=== PATIENT | female | born 1990 | race Two or more races ===

== ENCOUNTER 2016-10-05 05:37 | Observation (INO) | payer MEDICAID, OTHER ==
[~2016-10-05] VITALS: Ht 154.9 cm; Wt 75.7 kg
[2016-10-05] MEDS ORDERED: SODIUM CHLORIDE 0.9% 1,000 ML IVB ONE (07:49)
[2016-10-05] MEDS ORDERED: LIDOCAINE VISCOUS 2% 15ML UD PO ONE (08:00)
[2016-10-05] MEDS ORDERED: LOPERAMIDE HCL 2 MG CAP PO ONE (08:00)
[2016-10-05] MEDS ORDERED: ALUM & MAG HYDROX-SIMETH LIQ(MAALOX) 30 ML PO ONE (08:00)
[2016-10-05] MEDS ORDERED: ONDANSETRON HCL 4 MG/2 ML VIAL IV ONE (08:00)
[2016-10-05] MEDS ORDERED: DONNATAL 5ml ORAL Elix (BELLADONNA ALK-PHENOBARB) PO ONE (08:00)
[2016-10-05] MEDS ORDERED: PANTOPRAZOLE SODIUM 40 MG/10 ML VIAL IV ONE (08:00)
[2016-10-05 09:09] LABS: Albumin 3.7 g/dL (3.4-5.0); Bilirubin, Total 1.2 mg/dL (0.2-1.0); Calcium 8.5 mg/dL (8.5-10.1); Potassium 3.8 mmol/L (3.5-5.1); Total Protein 7.8 g/dL (6.4-8.2)
[2016-10-05 09:11] LABS: Basophils # (auto) 0 uL; Basophils % (auto) 0.2 % (0.0-2.0); Eosinophils # (auto) 0 uL; Eosinophils % (auto) 0.3 % (0.0-7.0); Hematocrit 39.8 % (36.0-46.0); Hemoglobin 13.3 g/dL (12.2-16.2); Lymphocytes # (auto) 0.5 uL; Lymphocytes % (auto) 8.4 % (10.0-50.0); Mean Corpuscular Hemoglobin 28.6 pg (28.0-32.0); Mean Corpuscular Hgb Conc. 33.5 g/dL (32.0-36.0); Mean Corpuscular Volume 85.3 fL (80.0-100.0); Mean Platelet Volume 8.9 fL (7.4-10.4); Monocytes # (auto) 0.3 uL; Monocytes % (auto) 4.6 % (0.0-12.0); Neutrophils # (auto) 5.3 uL; Neutrophils % (auto) 86.5 % (37.0-80.0); Platelet Count (auto) 273 10^3/uL (140-450); Red Cell Distribution Width 13.2 % (11.6-16.0); White Blood Cell 6.2 10^3/uL (4.4-10.8)
[2016-10-05] MEDS: HYDROmorphone HCL 2 MG/ML VL IV ONE ×2 (09:31→09:40)
[2016-10-05 09:56] VITALS: BP 117/72
[2016-10-05 10:32] LABS: Urine RBC None Seen /hpf (0 - 4)
[2016-10-05 11:03] LABS: Urine Bilirubin Negative (Negative); Urine Blood Negative /uL (Negative); Urine Color Yellow (Yellow); Urine Glucose Normal (Normal); Urine Ketone Negative (Negative); Urine Nitrite Negative (Negative); Urine Squamous Epithelial Cell FEW /hpf (<5); Urine Urobilinogen Normal (Negative)
== END 2016-10-05 11:16 | disposition home or self-care (01) | DRG 392 ==
LOC: ER 05:41 → OVERFLOW 07:50 → ER 11:16
PROVIDERS: ADMIT Family Medicine; ATTEND Family Medicine
DX: K52.9 Noninfective gastroenteritis and colitis, unspecified (principal); E86.0 Dehydration; R73.03 Prediabetes
CPT/HCPCS: 36415; 74176; 80053; 81001; 82150; 83690; 84702; 96361; 96374; 96375; 99285; C9113; G0378; J1170; J2405; J7030